=== PATIENT | female | born 1985 | race Caucasian/White ===

== ENCOUNTER 2021-05-31 12:08 | Outpatient (CLI) | payer OTHER ==
[2021-05-31] MEDS ORDERED: LACTATED RINGERS 1,000 ML IV ONE (12:42)
[2021-05-31 12:58] LABS: Bilirubin,Urine NEG (Negative); Blood,Urine LG (Negative); Color,Urine Yellow (Yellow); Mucus,Urine FEW /HPF; Urobilinogen,Urine < 2.0 mg/dL (<2.0)
[2021-05-31 14:13] VITALS: BP 98/60
--- NOTE | 2021-05-31 14:54 | Ultrasound Report ---
ULTRASOUND OBSTETRIC LIMITED INDICATION / CLINICAL INFORMATION: vaginal bleeding. Clinical Gestational Age (GA) in weeks, days: 25, 3 TECHNIQUE: Transabdominal. COMPARISON: None available. FINDINGS: HEART RATE (beats per minute): 125 AMNIOTIC FLUID INDEX (cm) = 12.2 (normal = 7-24 cm) PRESENTATION: Cephalic. ADDITIONAL FINDINGS: The placenta is located posteriorly and on the left. It is grade 1. There is no sign of abruption or previa. The placenta appears to be free of the cervical os. IMPRESSION: 1. Assessment located posteriorly in the left and is grade 1. No abruption is seen. No previa identif ied. Signer Name: Drew Vazquez MD Signed: 05/31/2021 2:49 PM Workstation Name: [id number]
== END 2021-05-31 15:39 | disposition home or self-care (01) ==
LOC: TRG 12:08 → APU 12:11 → TRG 15:39
PROVIDERS: ATTEND Obstetrics & Gynecology
DX: O09.892 Supervision of other high risk pregnancies, second trimester (principal); Z3A.25 25 weeks gestation of pregnancy
CPT/HCPCS: 59025; 76815; 81001

== ENCOUNTER 2021-08-07 10:27 | Inpatient (IN) | payer OTHER ==
[2021-08-07] MEDS ORDERED: fentaNYL 100 MCG/2 ML INJ IV PRN (11:53)
[2021-08-07] MEDS ORDERED: miSOPROStol 200 MCG TAB PR PRN (11:53)
[2021-08-07] MEDS ORDERED: OXYTOCIN 10 UNIT/1 ML INJ IM PRN (11:53)
[2021-08-07] MEDS ORDERED: ACETAMINOPHEN 325 MG TAB PO PRN (11:53)
[2021-08-07] MEDS ORDERED: LIDOCAINE (2%) 20 MG/1 ML VIAL 20 ML MDV INFILTRATI ONE ×2 (11:53→14:07)
[2021-08-07] MEDS ORDERED: NALOXONE 0.4 MG/1 ML INJ IV PRN (11:53)
[2021-08-07] MEDS ORDERED: MINERAL OIL 30 ML ORAL LIQD PO PRN (11:53)
[2021-08-07] MEDS ORDERED: ePHEDrine SULFATE 50 MG/1 ML INJ IV PRN (11:53)
[2021-08-07] MEDS ORDERED: CARBOPROST TROMETHAMINE 250 MCG/1 ML INJ IM PRN (11:53)
[2021-08-07] MEDS ORDERED: AMPICILLIN/NS 2 GM/100 ML 2 GM/100 ML BAG IV ONE (11:53)
[2021-08-07] MEDS ORDERED: LOPERAMIDE 2 MG CAP PO PRN (11:53)
[2021-08-07] MEDS ORDERED: METHYLERGONOVINE MALEATE 0.2 MG/ML VIAL IM PRN (11:53)
[2021-08-07] MEDS ORDERED: ONDANSETRON 4 MG/2 ML INJ IV PRN (11:53)
[2021-08-07] MEDS ORDERED: TERBUTALINE 1 MG/1 ML INJ SUB-Q PRN (11:53)
[2021-08-07] MEDS ORDERED: OXYTOCIN DRIP 30 UNITS/500 ML BAG IV SCH (12:00)
[2021-08-07] MEDS ORDERED: LACTATED RINGERS 1,000 ML IV SCH (12:00)
--- NOTE | 2021-08-07 12:09 | History and Physical Report ---
History of Present Illness Date of examination: 08/07/21 Date of admission: 08/07/2021 Chief complaint: My water broke at 0400 this morning History of present illness: Early entry to care; course complicated by Class B Diabetes (diet controlled), co-zainab with [facility]. Past History Past Medical History: no pertinent history Past Surgical History: no surgical history Family/Genetic History: diabetes (Mother and Father), hypertension (Mother and Father), cancer (Thyroid CA: Brother) Social history: no significant social history, - Obstetrical History Expected Date of Delivery: 09/10/21 Actual Gestation: 35 Week(s) 1 Day(s) : 1 Medications and Allergies Allergies Allergy/AdvReac Type Severity Reaction Status Date / Time No Known Allergies Allergy Verified 08/07/21 11:18 Active Meds: Active Medications Acetaminophen (Acetaminophen 325 Mg Tab) 650 mg PO Q4H PRN PRN Reason: Pain, Mild (1-3) Carboprost Tromethamine (Carboprost Tromethamine 250 Mcg/1 Ml Inj) 250 mcg IM ONCE PRN PRN Reason: Uterine Bleeding Ephedrine Sulfate (Ephedrine Sulfate 50 Mg/1 Ml Inj) 10 mg IV Q2M PRN PRN Reason: Hypotension Fentanyl (Fentanyl 100 Mcg/2 Ml Inj) 100 mcg IV Q2H PRN PRN Reason: Pain,Severe (7-10) LABOR PAIN Oxytocin/Sodium Chloride (Pitocin/Ns 30 Unit/500ml) 30 units in 500 mls @ 2 mls/hr IV TITR HUSSAIN; Protocol Lactated Ringer's (Lactated Ringers) 1,000 mls @ 125 mls/hr IV DIRECT HUSSAIN Oxytocin/Sodium Chloride (Pitocin/Ns 30 Unit/500ml) 30 units in 500 mls @ 40 mls/hr IV TITR HUSSAIN; Protocol Ampicillin Sodium (Ampicillin/Ns 2 Gm/100 Ml) 2 gm in 100 mls @ 100 mls/hr IV ONCE ONE; Protocol Stop: 08/07/21 12:52 Ampicillin Sodium (Ampicillin/Ns 1 Gm/50 Ml) 1 gm in 50 mls @ 100 mls/hr IV Q4H HUSSAIN; Protocol Lidocaine (Lidocaine (2%) 20 Mg/1 Ml Vial 20 Ml Mdv) 20 ml INFILTRATI ONCE ONE Stop: 08/07/21 11:54 Loperamide HCl (Loperamide 2 Mg Cap) 2 mg PO ONCE PRN PRN Reason: give with Hemabate Methylergonovine Maleate (Methylergonovine Maleate 0.2 Mg/Ml Vial) 0.2 mg IM ONCE PRN PRN Reason: Uterine Bleeding Mineral Oil (Mineral Oil 30 Ml Oral Liqd) 30 ml PO QHS PRN PRN Reason: Constipation Misoprostol (Misoprostol 200 Mcg Tab) 800 mcg MA ONCE PRN PRN Reason: Uterine Bleeding Naloxone HCl (Naloxone 0.4 Mg/1 Ml Inj) 0.1 mg IV Q2MIN PRN PRN Reason: Res Rate </= 8 or 02 SAT < 92% Ondansetron HCl (Ondansetron 4 Mg/2 Ml Inj) 4 mg IV Q8H PRN PRN Reason: Nausea And Vomiting Oxytocin (Oxytocin 10 Unit/1 Ml Inj) 10 unit IM ONCE PRN PRN Reason: Uterine Bleeding Terbutaline Sulfate (Terbutaline 1 Mg/1 Ml Inj) 0.25 mg SUB-Q ONCE PRN PRN Reason: Hyperstimulation/Hypertonicity Review of Systems All systems: negative - Vital Signs Vital signs: Vital Signs Pulse BP 72 141/80 08/07/21 11:00 08/07/21 11:00 Temp Pulse Resp BP Pulse Ox 79 150/73 98 08/07/21 12:03 08/07/21 11:45 08/07/21 12:03 - Physical Exam Breasts: Positive: normal Cardiovascular: Regular rate Lungs: Positive: Clear to auscultation, Normal air movement Abdomen: Positive: normal appearance, soft, normal bowel sounds Genitourinary (Female): Positive: normal external genitalia, normal perenium Uterus: Positive: enlarged Anus/Rectum: Positive: normal perianal skin Extremities: Positive: normal - Obstetrical FHR: category 1 Uterine Contraction Monitor Mode: External Cervical Dilatation: 10 (leaking a moderte amount of clear fluid) Cervical Effacement Percentage: 100 station: 0 Uterine Contraction Frequency (min): 1-2 Uterine Contraction Pattern: Regular Uterine Tone Measurement Phase: Resting Uterine Contraction Intensity: Moderate Results All other labs normal. Assessment and Plan A: IUP @ 35 1/7 Weeks Category I Tracing PROM Active Labor Class III Diabetes GBS Unknown P: Admit to L&D Per Routine Orders Accucheck q 4 hours GBS Prophylaxis
[2021-08-07 12:42] LABS: Hematocrit 31.2 % (30.3-42.9); Hemoglobin 9.8 gm/dl (10.1-14.3); Mean Corpuscular HGB Conc 31 % (30-34); Mean Corpuscular Volume 79 fl (79-97); Platelet Count 290 K/mm3 (140-440); Red Blood Count 3.94 M/mm3 (3.65-5.03); Red Cell Distribution Width 17.6 % (13.2-15.2)
[2021-08-07] MEDS: OXYTOCIN DRIP 30 UNITS/500 ML BAG IV SCH ×2 (14:41→15:05)
[2021-08-07 15:13] LABS: Cord Arterial Blood HCO3 17.3
[2021-08-07 15:14] LABS: Cord Art Bld Carbxyhemoglobin 0.3; Cord Art Bld Methemoglobin 1.4 mmHg
[2021-08-07 15:16] LABS: Cord Venous Blood HCO3 17.2
[2021-08-07 15:18] LABS: Cord Arterial Oxyhemoglobin 0.3; Cord Venous Oxyhemoglobin 0.4
--- NOTE | 2021-08-07 15:35 | Procedure Note ---
OB Delivery Note - Delivery Date of Delivery: 08/07/21 Surgeon: REGINA CALIX Estimated blood loss: other (400) - Vaginal Delivery presentation: vertex Delivery position: OA Intrapartum events: labor-<37 weeks, mult.variable deceleratio, other(please specify) (Dibetes) Delivery induction: none Delivery monitor: external FHT, external uterine Route of delivery: Delivery placenta: spontaneous Delivery cord: nuchal cord, 3 umbilical vessels Delivery laceration: 2nd degree Anesthesia: local Delivery comments: of a live 6'12 male infant over a 2nd degree perineal laceration under IV pain control with Apgars of 2 and 8 at 1424 on 08/07/2021. Nuchal cord x 1 easily manually reduced on the perineum prior to delivery of the anterior shoulder. Cord double clamped and cut by MARY Calix, not stimulated and handed directly to awaiting NICU/Resp team. Cord blood gasses collected x 2. Spontaneous delivery of placenta complete and intact with Patino side presenting at 1430. Fundus is firm and midline located 4 below the U. GBS prophylaxis x 1. Placenta to pathology. Perineal laceration repaired with 2-[address]-1 under local 2% Lidocaine. Slow trickle of blood from uterus. Vagina packed with surgical laparotomy sponge. Dr. Blair to evaluate for cervical laceration. - A at 1 minute: 2 at 5 minutes: 8 Gender: Male (6'12)
[2021-08-07] MEDS ORDERED: HYDROcodone/ACETAMINOPHEN 5-325 MG TAB PO PRN (16:00)
[2021-08-07] MEDS ORDERED: LANOLIN/ZINC/DIMETHICONE (LANSINOH) 7 GM TP PRN (16:00)
[2021-08-07] MEDS ORDERED: diphenhydrAMINE 25 MG CAP PO PRN (16:00)
[2021-08-07] MEDS ORDERED: BENZOCAINE/MENTHOL 20/0.5% TOP SPRAY 56 GM TP PRN (16:00)
[2021-08-07] MEDS ORDERED: AMPICILLIN/NS 1 GM/50 ML 1 GM/50 ML BAG IV SCH (16:00)
[2021-08-07] MEDS ORDERED: WITCH HAZEL/ GLYCERIN PAD TP PRN (16:00)
[2021-08-07] MEDS: IBUPROFEN 600 MG TAB PO SCH ×2 (16:12→22:11)
[2021-08-07] MEDS: PRENATAL VIT27-FE FUMARATE-FOLIC ACID VIT TAB PO SCH (16:13)
--- NOTE | 2021-08-07 17:22 | Event Note ---
Date: 08/07/21 Miniaml VB on peripad PE: no cervical lacerations perineal repair intact suspected lower uterine segment atony plan for PO methergine 0/2mg PO x3 doses hemodynamically stable at bedside Vani Blair MD
[2021-08-07] MEDS: METHYLERGONOVINE 0.2 MG TABLET PO SCH ×2 (18:43→22:11)
[2021-08-07] MEDS: FERROUS SULFATE 325 MG TAB PO SCH (22:11)
[2021-08-08] MEDS: IBUPROFEN 600 MG TAB PO SCH ×3 (04:02→16:05)
[2021-08-08 04:36] LABS: Hematocrit 23.4 % (30.3-42.9); Hemoglobin 7.4 gm/dl (10.1-14.3)
[2021-08-08] MEDS: METHYLERGONOVINE 0.2 MG TABLET PO SCH (05:51)
[2021-08-08] MEDS: PRENATAL VIT27-FE FUMARATE-FOLIC ACID VIT TAB PO SCH (10:31)
[2021-08-08] MEDS: FERROUS SULFATE 325 MG TAB PO SCH (10:31)
--- NOTE | 2021-08-08 14:27 | Progress Note ---
Assessment and Plan A: S/P Asymptomatic anemia Class B diabetes (FSBS 149 on 08/07) P: Continue rouitne pp orders Continue Fe therapy Repeat FSBS today D/C home tomm if stable Subjective - Subjective Date of service: 08/08/21 Principal diagnosis: s/p Patient reports: appetite normal, voiding normally, pain well controlled, ambulating normally [place]: doing well, in NICU Objective - Vital Signs Latest vital signs: Vital Signs Temp Pulse Resp BP Pulse Ox Pulse Ox 08/08/21 11:40 97.9 F 90 16 106/72 97 08/08/21 09:06 98.2 F 82 20 118/72 97 08/08/21 08:00 100 08/08/21 05:02 18 08/08/21 04:02 98.4 F 84 18 101/70 97 08/08/21 00:25 98.2 F 76 18 116/80 98 08/07/21 23:11 18 08/07/21 22:11 18 08/07/21 20:47 98.3 F 86 18 119/78 97 08/07/21 19:53 100 08/07/21 17:48 99 H 16 96/73 97 08/07/21 17:18 97 H 99 08/07/21 17:13 97 H 99 08/07/21 17:08 89 99 08/07/21 17:04 98 H 105/63 08/07/21 17:03 95 H 98 08/07/21 16:58 95 H 99 08/07/21 16:53 99 H 99 08/07/21 16:49 103 H 113/65 08/07/21 16:48 98 H 99 08/07/21 16:43 98 H 99 08/07/21 16:38 99 H 98 08/07/21 16:34 96 H 111/66 08/07/21 16:33 98 H 99 08/07/21 16:30 98.0 F 18 08/07/21 16:28 105 H 99 08/07/21 16:23 107 H 99 08/07/21 16:19 109 H 114/68 08/07/21 16:18 99 H 99 08/07/21 16:13 98 H 99 08/07/21 16:08 97 H 98 08/07/21 16:04 102 H 111/67 08/07/21 16:03 97 H 98 08/07/21 15:58 98 H 98 08/07/21 15:53 97 H 98 08/07/21 15:49 102 H 112/67 08/07/21 15:48 95 H 98 08/07/21 15:43 99 H 99 08/07/21 15:38 107 H 99 08/07/21 15:34 108 H 117/71 08/07/21 15:33 100 H 98 08/07/21 15:30 98.0 F 18 08/07/21 15:28 101 H 98 08/07/21 15:23 100 H 99 08/07/21 15:19 96 H 106/57 08/07/21 15:18 96 H 99 08/07/21 15:13 99 H 99 08/07/21 15:08 107 H 98 08/07/21 15:04 95 H 108/61 08/07/21 15:03 97 H 99 08/07/21 14:58 93 H 99 08/07/21 14:53 97 H 98 08/07/21 14:48 99 H 112/59 98 08/07/21 14:44 93 H 118/58 08/07/21 14:43 96 H 99 08/07/21 14:40 142 H 40 H 08/07/21 14:39 108 H 142/72 08/07/21 14:38 98 H 99 08/07/21 14:33 103 H 108/57 99 08/07/21 14:31 101 H 116/66 08/07/21 14:30 98.0 F 20 08/07/21 14:28 100 H 99 Intake and Output 08/07/21 08/08/21 08/08/21 22:59 06:59 14:59 Intake Total 399.6 240 120 Output Total 900 900 Balance 399.6 -442 -780 Intake: IV 399.6 PITOCin/NS 30 UNIT/500ML 399.6 30 units In 500 ml @ 40 mls/hr IV TITR HUSSAIN Rx#: [id number] Oral 240 120 Output: Urine 900 900 Void 900 900 Other: Total, Intake Amount 240 120 Total, Output Amount 900 900 # Voids Void 1 1 - Exam Breasts: Present: normal Abdomen: Present: normal appearance, soft, normal bowel sounds Vulva: both: normal Uterus: Present: normal, firm, fundal height below umbilicus Extremities: Present: normal Incision: Present: normal, intact - Labs Labs: Abnormal lab results 08/08/21 Range/Units 04:06 Hgb 7.4 L (10.1-14.3) gm/dl Hct 23.4 L D (30.3-42.9) %
[2021-08-09] MEDS: FERROUS SULFATE 325 MG TAB PO SCH ×2 (02:30→10:50)
[2021-08-09] MEDS: IBUPROFEN 600 MG TAB PO SCH (02:30)
[2021-08-09 08:27] VITALS: BP 92/64
--- NOTE | 2021-08-09 08:39 | Discharge Summary ---
Providers - Providers Date of Admission: 08/07/21 14:00 Date of discharge: 08/09/21 Attending physician: DESTINI FERRARI MD Primary care physician: DESTINI FERRARI MD Hospitalization Reason for admission: active labor, rupture of membranes Delivery: Episiotomy: none Laceration: 2nd degree Incision: normal, intact Other procedures: other (FSBS monitoring) complications: other (elevated FSBS) Discharge diagnosis: IUP at term delivered, other (pregestational diabetes diet controlled) baby: male Hospital course: Pt was admitted to [facility] in active labor with SROM. She had a with elevated FSBS pp and tested pos for covid 19. Pt was cleared for d/c by Dr Qureshi. See H&P, delivery summary, and pp notes. Condition at discharge: Stable Disposition: 01 HOME / SELF CARE / HOMELESS Plan - Discharge Medications Prescriptions: Ferrous Sulfate [Feosol 325 MG tab] 325 mg PO BID #120 tablet Ibuprofen [Motrin 600 MG tab] 600 mg PO Q6H PRN #30 tablet PRN Reason: Menstrual Cramps - Provider Discharge Summary Activity: routine, no sex for 6 weeks, no heavy lifting 4 weeks, no strenuous exercise Diet: other Instructions: routine (2000 robby ada diet) Additional instructions: [] Smoking cessation referral if applicable(refer to patient education folder for contact #) [] Refer to [facility]'s [facility] Booklet Call your doctor immediately for: * Fever > 100.5 * Heavy vaginal bleeding ( >1 pad per hour) * Severe persistent headache * Shortness of breath * Reddened, hot, painful area to leg or breast * Drainage or odor from incision. * Keep incision clean and dry at all times and follow doctor's instructions regarding bathing/showering f/u in 1 wk if neg covid test. - Follow up plan Follow up: DESTINI FERRARI MD [Primary Care Provider] - 6 Weeks
[2021-08-09] MEDS: PRENATAL VIT27-FE FUMARATE-FOLIC ACID VIT TAB PO SCH (10:50)
== END 2021-08-09 11:00 | disposition home or self-care (01) | DRG 774 ==
LOC: TRG 10:27 → APU 10:28 → LD 11:42 → TRG 14:44 → OB 18:02
PROVIDERS: ADMIT Obstetrics & Gynecology; ATTEND Obstetrics & Gynecology
PROC: 10E0XZZ Delivery of Products of Conception, External Approach (ICD-10-PCS; principal; 2021-08-07)
PROC: 0KQM0ZZ Repair Perineum Muscle, Open Approach (ICD-10-PCS; 2021-08-07)
DX: O98.52 Other viral diseases complicating childbirth (principal); Z3A.35 35 weeks gestation of pregnancy; Z37.0 Single live birth; U07.1 COVID-19; O24.82 Other pre-existing diabetes mellitus in childbirth; Z83.3 Family history of diabetes mellitus; Z82.49 Family history of ischemic heart disease and other diseases of the circulatory system; O42.013 Preterm premature rupture of membranes, onset of labor within 24 hours of rupture, third trimester; O60.14X0 Preterm labor third trimester with preterm delivery third trimester, not applicable or unspecified; O76 Abnormality in fetal heart rate and rhythm complicating labor and delivery; O69.81X0 Labor and delivery complicated by cord around neck, without compression, not applicable or unspecified; O70.1 Second degree perineal laceration during delivery; O90.81 Anemia of the puerperium
CPT/HCPCS: 36415; 82803; 82962; 85014; 85018; 85027; 86850; 86900; 86901; 88307; 99211; G0378; G0463; J0290; J2590; J3010; J7120; U0003